=== PATIENT | male | born 1960 | race Caucasian/White ===

== ENCOUNTER 2022-11-08 19:56 | Inpatient (IN) ==
[2022-11-08] MEDS: HEPARIN DRIP 25,000 UNITS/500 ML PREMIX IV SCH (20:42)
[2022-11-08 20:50] LABS: PT Patient Result 10.9 SECS (10.1-12.1); Partial Thromboplastin Time 40.2 SECS (23.7-32.9)
[2022-11-08 20:55] LABS: Basophils % 0.1 % (0.0-0.8); Hematocrit 41.8 VOL% (42.0-52.0); Hemoglobin 14.7 GM/DL (14.0-18.0); Immature Granulocytes % 0.5 %; Immature Granulocytes Absolute 0.05 #; Lymphocytes # 1.2 10*3/uL (1.4-4.0); Lymphocytes % 13.3 % (21.2-54.2); Mean Corpuscular HGB Conc 35.2 GM/DL (32-36); Mean Platelet Volume 11.1 FL (9.6-12.0); Monocytes % 10.4 % (1.7-12.7); Neutrophils % 75.7 % (38.7-73.9); Platelet Count 137 T/CUMM (130-400); Red Blood Count 4.86 MC/CUMM (3.8-5.5); Red Cell Distribution Width 13.7 % (9.3-17.3); White Blood Count 9.1 T/CUMM (4-12)
[2022-11-08] MEDS ORDERED: ONDANSETRON 4 MG/2 ML VIAL IV PRN (21:14)
[2022-11-08] MEDS ORDERED: hydrALAZINE 20 MG/1 ML VIAL IV PRN (21:14)
[2022-11-08] MEDS ORDERED: DOCUSATE SODIUM 100 MG CAPSULE PO PRN (21:14)
[2022-11-08 21:57] LABS: Albumin 2.9 G/DL (3.4-5.0); Bilirubin,Total 1.1 MG/DL (0.20-1.00); Calcium 9.4 MG/DL (8.5-10.1); Osmolality,Calculated 272.1 MOS/KG (273-304); Potassium 4.4 MMOL/L (3.5-5.1); Total Protein 7.6 G/DL (6.4-8.2)
[2022-11-08] MEDS ORDERED: levETIRAcetam 500 MG TABLET PO STA (22:15)
[2022-11-09 00:43] LABS: PT Patient Result 10.9 SECS (10.1-12.1); Partial Thromboplastin Time 33.5 SECS (23.7-32.9)
[2022-11-09] MEDS ORDERED: HEPARIN 5,000 UNIT/1 ML VIAL IV ONE ×2 (00:54→10:58)
[2022-11-09 04:28] LABS: Basophils % 0.4 % (0.0-0.8); Eosinophils % 0.5 % (0.00-10.9); Hemoglobin 13.9 GM/DL (14.0-18.0); Immature Granulocytes % 0.5 %; Immature Granulocytes Absolute 0.04 #; Lymphocytes # 1.4 10*3/uL (1.4-4.0); Mean Corpuscular HGB Conc 34.8 GM/DL (32-36); Mean Platelet Volume 9.6 FL (9.6-12.0); Monocytes % 13.3 % (1.7-12.7); Neutrophils % 66.3 % (38.7-73.9); Platelet Count 181 T/CUMM (130-400); Red Cell Distribution Width 13.5 % (9.3-17.3); White Blood Count 7.5 T/CUMM (4-12)
[2022-11-09 06:57] LABS: Albumin 2.9 G/DL (3.4-5.0); Bilirubin,Total 1.1 MG/DL (0.20-1.00); Calcium 9.6 MG/DL (8.5-10.1); Osmolality,Calculated 274.8 MOS/KG (273-304); Potassium 4.4 MMOL/L (3.5-5.1); Total Protein 7.5 G/DL (6.4-8.2)
[2022-11-09 07:31] LABS: PT Patient Result 10.9 SECS (10.1-12.1); Partial Thromboplastin Time 39.8 SECS (23.7-32.9)
[2022-11-09] MEDS: levETIRAcetam 500 MG TABLET PO SCH ×2 (10:14→20:16)
[2022-11-09] MEDS: ACETAMINOPHEN 325 MG TABLET PO PRN (23:45)
[2022-11-10 04:43] LABS: Basophils % 0.5 % (0.0-0.8); Eosinophils # 0.1 10*3/uL (0.0-0.87); Eosinophils % 1.8 % (0.00-10.9); Hematocrit 43.5 VOL% (42.0-52.0); Hemoglobin 14.4 GM/DL (14.0-18.0); Immature Granulocytes % 0.5 %; Immature Granulocytes Absolute 0.03 #; Lymphocytes # 1.5 10*3/uL (1.4-4.0); Lymphocytes % 26.9 % (21.2-54.2); Mean Corpuscular HGB Conc 33.1 GM/DL (32-36); Mean Corpuscular Volume 91.2 FL (87-102); Mean Platelet Volume 10.7 FL (9.6-12.0); Monocytes # 0.8 10*3/uL (0.11-0.8); Monocytes % 13.3 % (1.7-12.7); Platelet Count 134 T/CUMM (130-400); Red Blood Count 4.77 MC/CUMM (3.8-5.5); Red Cell Distribution Width 13.5 % (9.3-17.3); White Blood Count 5.7 T/CUMM (4-12)
[2022-11-10] MEDS: HEPARIN DRIP 25,000 UNITS/500 ML PREMIX IV SCH (04:53)
[2022-11-10 05:15] LABS: Albumin 2.6 G/DL (3.4-5.0); Bilirubin,Total 0.8 MG/DL (0.20-1.00); Calcium 9.1 MG/DL (8.5-10.1); Potassium 4.2 MMOL/L (3.5-5.1)
[2022-11-10] MEDS: levETIRAcetam 500 MG TABLET PO SCH ×2 (08:25→20:07)
[2022-11-10] MEDS ORDERED: DIAZEPAM 5 MG TABLET PO ONE (10:59)
[2022-11-10] MEDS ORDERED: diphenhydrAMINE CAP 25 MG CAPSULE PO ONE (10:59)
[2022-11-10] MEDS ORDERED: HYDROmorphone 1 MG/1 ML SYRINGE ONE (15:02)
[2022-11-10] MEDS ORDERED: MIDAZOLAM 2 MG/2 ML VIAL ONE (15:02)
[2022-11-10] MEDS ORDERED: HEPARIN 5,000 UNIT/1 ML VIAL ONE (15:35)
[2022-11-10] MEDS ORDERED: METOPROLOL TARTRATE 5 MG/5 ML VIAL IV ONE (16:00)
[2022-11-10] MEDS: APIXABAN 5 MG TABLET PO SCH (17:53)
[2022-11-10] MEDS: DEXAMETHASONE 4 MG TABLET PO SCH (20:07)
[2022-11-10] MEDS: ACETAMINOPHEN 325 MG TABLET PO PRN (22:22)
[2022-11-10] MEDS ORDERED: SODIUM CHLORIDE 0.9% 500 ML IV ONE (23:59)
[2022-11-11] MEDS ORDERED: SODIUM CHLORIDE 0.9% 1,000 ML IV SCH (01:00)
[2022-11-11 04:40] LABS: Eosinophils % 0.1 % (0.00-10.9); Hematocrit 40.1 VOL% (42.0-52.0); Hemoglobin 13.9 GM/DL (14.0-18.0); Immature Granulocytes % 0.8 %; Immature Granulocytes Absolute 0.06 #; Lymphocytes # 0.6 10*3/uL (1.4-4.0); Lymphocytes % 7.1 % (21.2-54.2); Mean Corpuscular HGB Conc 34.7 GM/DL (32-36); Mean Corpuscular Volume 86.2 FL (87-102); Mean Platelet Volume 9.8 FL (9.6-12.0); Monocytes # 0.7 10*3/uL (0.11-0.8); Monocytes % 9.2 % (1.7-12.7); NRBC # 0.03 10*3/uL; Neutrophils % 82.8 % (38.7-73.9); Platelet Count 191 T/CUMM (130-400); Red Blood Count 4.65 MC/CUMM (3.8-5.5); Red Cell Distribution Width 13.4 % (9.3-17.3); White Blood Count 7.8 T/CUMM (4-12)
[2022-11-11 04:55] LABS: Calcium 9.3 MG/DL (8.5-10.1); Potassium 4.4 MMOL/L (3.5-5.1)
[2022-11-11] MEDS: APIXABAN 5 MG TABLET PO SCH ×2 (09:19→20:15)
[2022-11-11] MEDS: DEXAMETHASONE 4 MG TABLET PO SCH ×2 (09:19→20:15)
[2022-11-11] MEDS: levETIRAcetam 500 MG TABLET PO SCH ×2 (09:19→20:15)
[2022-11-11] MEDS ORDERED: DIAZEPAM 5 MG TABLET PO ONE ×2 (10:47→14:19)
[2022-11-11 15:03] VITALS: BP 126/85
[2022-11-12 03:39] LABS: Basophils % 0.1 % (0.0-0.8); Eosinophils % 0.1 % (0.00-10.9); Hemoglobin 13.2 GM/DL (14.0-18.0); Immature Granulocytes % 0.5 %; Immature Granulocytes Absolute 0.04 #; Lymphocytes # 0.8 10*3/uL (1.4-4.0); Lymphocytes % 8.8 % (21.2-54.2); Mean Corpuscular HGB Conc 33.8 GM/DL (32-36); Mean Corpuscular Volume 88.6 FL (87-102); Mean Platelet Volume 9.7 FL (9.6-12.0); Monocytes # 0.6 10*3/uL (0.11-0.8); Monocytes % 7.1 % (1.7-12.7); Neutrophils % 83.4 % (38.7-73.9); Platelet Count 199 T/CUMM (130-400); Red Cell Distribution Width 13.6 % (9.3-17.3); White Blood Count 8.6 T/CUMM (4-12)
[2022-11-12] MEDS: levETIRAcetam 500 MG TABLET PO SCH (09:04)
[2022-11-12] MEDS: DEXAMETHASONE 4 MG TABLET PO SCH (09:04)
[2022-11-12] MEDS: APIXABAN 5 MG TABLET PO SCH (09:04)
[2022-11-17] MEDS ORDERED: APIXABAN 5 MG TABLET PO SCH (09:00)
== END 2022-11-12 10:24 | disposition home or self-care (01) | DRG 163 ==
LOC: N.ED 19:56 → N.EDINP 20:55 → SUATTDRO 20:55 → N.CC 11-09 09:06
PROVIDERS: ADMIT Family Medicine; ATTEND Internal Medicine